=== PATIENT | male | born 1950 | race African-American/Black ===

== ENCOUNTER 2021-06-22 08:42 | Day surgery (SDC) | payer OTHER, BC ==
[2021-06-19 12:52] VITALS: BMI 26.7
[2021-06-22 10:31] VITALS: TEMP 97.1
[2021-06-22 10:35] VITALS: PULSE 64
[2021-06-22 11:12] VITALS: BP 102/64
== END 2021-06-22 11:10 | disposition home or self-care (01) ==
LOC: FASU-ENDO 08:42
PROVIDERS: ATTEND Internal Medicine Gastroenterology
PROC: 0DJD8ZZ Inspection of Lower Intestinal Tract, Via Natural or Artificial Opening Endoscopic (ICD-10-PCS; principal; 2021-06-22 09:53)
DX: Z12.11 Encounter for screening for malignant neoplasm of colon (principal); K57.30 Diverticulosis of large intestine without perforation or abscess without bleeding